=== PATIENT | female | born 1995 | race African-American/Black ===

== ENCOUNTER 2017-04-28 12:22 | Emergency (ER) | payer MEDICAID, OTHER ==
[2017-04-28 12:39] VITALS: BP 138/74
--- NOTE | 2017-04-28 12:53 | ER Document Report ---
HPI - HPI Patient complains to provider of: right eye draining , sinus pressure and [place] Onset: Yesterday Onset/Duration: Gradual Quality of pain: Pressure Severity: Moderate Pain Level: 4 Context: States right eye started draining yesterday, no colored drainage chest clear. States she did have a recent cold and is experiencing nasal pressure and headache. Associated Symptoms: Headache, Sinus pain/drainage. denies: Fever Exacerbated by: Denies Relieved by: Denies Similar symptoms previously: Yes Recently seen / treated by doctor: No - ROS ROS below otherwise negative: Yes Systems Reviewed and Negative: Yes All other systems reviewed and negative - CONSTITUTIONAL Constitutional: DENIES: Fever - EENT EENT: REPORTS: Nasal Drainage-Clear. DENIES: Sore Throat - NEURO Neurology: REPORTS: Headache - CARDIOVASCULAR Cardiovascular: DENIES: Chest pain - RESPIRATORY Respiratory: DENIES: Trouble Breathing - GASTROINTESTINAL Gastrointestinal: DENIES: Abdominal Pain - URINARY Urinary: DENIES: Dysuria - REPRODUCTIVE Reproductive: DENIES: : - MUSCULOSKELETAL Musculoskeletal: DENIES: Extremity pain - DERM Skin Color: Normal Skin Problems: None Past Medical History - General Information source: Patient - Social History Smoking Status: Current Every Day Smoker Cigarette use (# per day): Yes Frequency of alcohol use: Occasional Drug Abuse: None Lives with: Spouse/Significant other Family History: Arthritis, Hypertension, Malignancy, Thyroid Disfunction Patient has suicidal ideation: No Patient has homicidal ideation: No Neurological Medical History: Reports: Hx Migraine Musculoskeltal Medical History: Reports Hx Musculoskeletal Deformity, Reports Hx Musculoskeletal Trauma Past Surgical History: Reports: Hx Oral Surgery - [place] teeth - Immunizations Immunizations up to date: Yes Hx Diphtheria, Pertussis, Tetanus Vaccination: Yes Vertical Provider Document - CONSTITUTIONAL Agree With Documented VS: Yes Exam Limitations: No Limitations General Appearance: WD/WN, No Apparent Distress - INFECTION CONTROL TRAVEL OUTSIDE OF THE [place] IN LAST 30 DAYS: No - HEENT HEENT: Atraumatic, Pharyngeal Erythema - mild Notes: Clear drainage noted from right eye, sclera clear. Patient tender over right maxillary sinus. TMs with fluid bilaterally, more in right than left. No discoloration around the eye noted at this time. - NECK Neck: Normal Inspection, Supple - RESPIRATORY Respiratory: Breath Sounds Normal, No Respiratory Distress O2 Sat by Pulse Oximetry: 100 - CARDIOVASCULAR Cardiovascular: Regular Rate, Regular Rhythm - GI/ABDOMEN Gastrointestinal: Abdomen Soft - MUSCULOSKELETAL/EXTREMETIES Musculoskeletal/Extremeties: ALEC CONTEH - NEURO Level of Consciousness: Awake, Alert, Appropriate - DERM Integumentary: Warm, Dry, No Rash Course - Vital Signs Vital signs: Temp Pulse Resp BP Pulse Ox 98.2 F 59 L 20 138/74 H 100 04/28/17 12:37 04/28/17 12:37 04/28/17 12:37 04/28/17 12:37 04/28/17 12:37 Discharge - Discharge Clinical Impression: Acute maxillary sinusitis Qualifiers: Recurrence: not specified as recurrent Qualified Code(s): J01.00 - Acute maxillary sinusitis, unspecified Conjunctivitis Qualifiers: Conjunctivitis type: acute Acute conjunctivitis type: unspecified Laterality: right Qualified Code(s): H10.31 - Unspecified acute conjunctivitis, right eye Bilateral serous otitis media Qualifiers: Chronicity: acute Recurrence: not specified as recurrent Qualified Code(s): H65.03 - Acute serous otitis media, bilateral Condition: Good Disposition: HOME, SELF-CARE Additional Instructions: Take all meds as prescribed 1 drop in right eye 4 times a day for 7 days warm compresses Saline nasal rinses OTC decongestant for symptom relief Tylenol or Motrin as needed for headache Follow-up with your doctor for recheck if not better in 4-5 days. return as needed. Prescriptions: Amox Tr/Potassium Clavulanate [Augmentin 875-125 mg Tablet] 1 tab PO BID #20 tablet
[2017-04-28] MEDS ORDERED: POLYMYXIN B SULFATE/TMP OPH SOLN (10 ML/ER DISP) OD PRN (12:54)
[2017-04-28] MEDS ORDERED: OXYCODONE-ACETAMINOPHEN 5-325 MG TABLET PO ONE (12:54)
== END 2017-04-28 13:15 | disposition home or self-care (01) ==
LOC: ER 12:22
DX: J01.00 Acute maxillary sinusitis, unspecified (principal); H10.31 Unspecified acute conjunctivitis, right eye; H65.03 Acute serous otitis media, bilateral; H57.11 Ocular pain, right eye; R51 Headache; F17.210 Nicotine dependence, cigarettes, uncomplicated
CPT/HCPCS: 99283; J3490

== ENCOUNTER 2017-04-29 00:02 | Emergency (ER) | payer SELFPAY ==
[2017-04-29] MEDS ORDERED: DIPHENHYDRAMINE HCL 50 MG/ML VIAL IV ONE (03:56)
[2017-04-29] MEDS ORDERED: KETOROLAC TROMETHAMINE INJ/PF 30 MG/1 ML SDV IV ONE (03:56)
[2017-04-29] MEDS ORDERED: METOCLOPRAMIDE HCL INJ/PF 10 MG/2 ML SDV IV ONE (03:56)
[2017-04-29] MEDS ORDERED: NORMAL SALINE 1000 ML 1,000 ML IV ONE (03:57)
--- NOTE | 2017-04-29 04:01 | ER Document Report ---
HPI - HPI Patient complains to provider of: Throbbing right-sided face pain Onset: Yesterday Onset/Duration: Gradual Pain Level: 2 Context: 21-year-old female complaining of gradual onset right-sided headache and neck pain since yesterday. It started with tearing of the right eye and progressed to infraorbital headache and radiated into the right side of her neck. It progressively got worse throughout the day. She was already seen in the emergency department and treated for conjunctivitis and sinusitis. She did have an upper respiratory infection several weeks ago but no longer has any nasal drainage. No History of migraine but her chart indicated that she did. No fever or chills. Associated Symptoms: None Exacerbated by: Denies Relieved by: Denies Similar symptoms previously: No Recently seen / treated by doctor: Yes - ROS ROS below otherwise negative: Yes Systems Reviewed and Negative: Yes All other systems reviewed and negative - REPRODUCTIVE LMP: 04/16/17 Reproductive: DENIES: : - DERM Skin Color: Normal, [place] Past Medical History - General Information source: Patient Last Menstrual Period: 04-16-17 - Social History Smoking Status: Never Smoker Frequency of alcohol use: None Drug Abuse: None Lives with: Spouse/Significant other Family History: Arthritis, Hypertension, Malignancy, Thyroid Disfunction Patient has suicidal ideation: No Patient has homicidal ideation: No Neurological Medical History: Reports: Hx Migraine Renal/ Medical History: Denies: Hx Peritoneal Dialysis Musculoskeltal Medical History: Reports Hx Musculoskeletal Deformity, Reports Hx Musculoskeletal Trauma Past Surgical History: Reports: Hx Oral Surgery - [place] teeth - Immunizations Immunizations up to date: Yes Hx Diphtheria, Pertussis, Tetanus Vaccination: Yes Vertical Provider Document - CONSTITUTIONAL Agree With Documented VS: Yes Exam Limitations: No Limitations - INFECTION CONTROL TRAVEL OUTSIDE OF THE [place] IN LAST 30 DAYS: No - HEENT HEENT: Atraumatic, Normocephalic, PERRLA. negative: Conjuctival Injection, Pharyngeal Erythema, Tympanic Membrane Red - NECK Neck: Supple. negative: Lymphadenopathy-Left, Lymphadenopathy-Right Notes: tender right SCM muscle, no adenopathy - RESPIRATORY Respiratory: Breath Sounds Normal, No Respiratory Distress O2 Sat by Pulse Oximetry: 98 - CARDIOVASCULAR Cardiovascular: Regular Rate, Regular Rhythm - GI/ABDOMEN Gastrointestinal: Abdomen Soft, Abdomen Non-Tender - MUSCULOSKELETAL/EXTREMETIES Musculoskeletal/Extremeties: MAEW, FROM, Non-Tender - NEURO Level of Consciousness: Awake, Alert Motor/Sensory: No Motor Deficit, No Sensory Deficit - DERM Integumentary: Warm, Dry, No Rash Course - Vital Signs Vital signs: Temp Pulse Resp BP Pulse Ox 98.0 F 64 16 138/89 H 98 04/29/17 00:08 04/29/17 00:08 04/29/17 00:08 04/29/17 00:08 04/29/17 00:08 Discharge - Discharge Clinical Impression: migraine headache Condition: Good Disposition: HOME, SELF-CARE Instructions: Migraine Headache ([facility]), Toradol Injection ([facility]), Reglan ([facility]), Use of Diphenhydramine Additional Instructions: rest plenty of fluids see neurologist if recurs/ persists to er if worse Forms: Return to Work Referrals: CHRISTOS BELLE MD [ACTIVE STAFF] - Follow up as needed
[2017-04-29 05:27] VITALS: BP 124/85
== END 2017-04-29 05:25 | disposition home or self-care (01) ==
LOC: ER 00:02
DX: G43.909 Migraine, unspecified, not intractable, without status migrainosus (principal); M54.2 Cervicalgia
CPT/HCPCS: 99283; 96361; 96374; 96375; J1200; J1885; J2765; J7030

== ENCOUNTER 2019-04-05 21:12 | Emergency (ER) | payer SELFPAY ==
[2019-04-05 21:28] VITALS: BP 126/79
[2019-04-05] MEDS ORDERED: ACETAMINOPHEN 325 MG TABLET PO ONE ×2 (21:43→21:52)
[2019-04-06] MEDS ORDERED: PENICILLIN V POTASSIUM 500 MG TABLET PO ONE (00:53)
[2019-04-06] MEDS ORDERED: DEXAMETHASONE SOD PHOS INJ 10 MG/1 ML VIAL IM ONE (00:54)
--- NOTE | 2019-04-06 00:56 | ER Document Report ---
ED General - General Chief Complaint: Flu Symptoms Stated Complaint: FEVER Time Seen by Provider: 04/06/19 00:37 Notes: Patient is a pleasant 23 year old female who presents with complaint of a sore throat, mild headache, body aches, and fever. She says her daughter had similar symptoms but her daughter started to improve. She said her daughter with her audio visual production specialist and they did do a throat swabto go back tomorrow for the throat culture results. Patient herself denies any vomiting. No cough. No other complaints at this time. TRAVEL OUTSIDE OF THE [place] IN LAST 30 DAYS: No - Related Data Allergies/Adverse Reactions: naproxen sodium [From Aleve] Allergy (Verified 07/08/16 14:46) fruit Allergy (Uncoded 07/08/16 14:46) Past Medical History - Social History Smoking Status: Current Every Day Smoker Frequency of alcohol use: Occasional Drug Abuse: None Family History: Arthritis, Hypertension, Malignancy, Thyroid Disfunction Patient has suicidal ideation: No Patient has homicidal ideation: No Neurological Medical History: Reports: Hx Migraine Renal/ Medical History: Denies: Hx Peritoneal Dialysis Musculoskeletal Medical History: Reports Hx Musculoskeletal Deformity, Reports Hx Musculoskeletal Trauma Past Surgical History: Reports: Hx Oral Surgery - [place] teeth - Immunizations Immunizations up to date: Yes Hx Diphtheria, Pertussis, Tetanus Vaccination: Yes Review of Systems - Review of Systems Notes: My Normal Review Basic REVIEW OF SYSTEMS: CONSTITUTIONAL : Fever EENT: Sore throat CARDIOVASCULAR: Denies chest pain. RESPIRATORY: Denies cough, cold, or chest congestion. Denies shortness of breath, difficulty breathing, or wheezing. GASTROINTESTINAL: Denies abdominal pain. Denies nausea, vomiting, or diarrhea. MUSCULOSKELETAL: Denies neck or back pain or joint pain or swelling. SKIN: Denies rash or skin lesions. NEUROLOGICAL: Denies altered mental status or loss of consciousness. Mild headache. Denies weakness or paralysis or loss of use of either side. Denies problems with gait or speech. Denies sensory or motor loss. ALL OTHER SYSTEMS REVIEWED AND NEGATIVE. Physical Exam - Vital signs Vitals: Temp Pulse Resp BP Pulse Ox 102.8 F H 96 20 126/79 H 99 04/05/19 21:26 04/05/19 21:26 04/05/19 21:26 04/05/19 21:26 04/05/19 21:26 - Notes Notes: General Appearance: Well nourished, alert, cooperative, no acute distress, mild obvious discomfort. No stridor. No signs of difficulty breathing. Lung secretions without difficulty. Vitals: reviewed, See vital signs table. Head: no swelling or tenderness to the head Eyes: PERRL, EOMI, Conjuctiva clear Mouth: No decreasd moisture Throat: Bilateral tonsils are erythematous red and bulging with exudates. Uvula is midline. No peritonsillar inflammation or swelling. Neck: Supple, no neck tenderness, No swelling Lungs: No wheezing, No rales, No rhonci, No accessory muscle use, good air exchange bilaterally. Heart: Normal rate, Regular rythm, No murmur, no rub Extremities: good pulses in all extremities, no swelling or tenderness in the extremities, no edema. Skin: warm, dry, appropriate color, no rash Neuro: speech clear, oriented x 3, normal affect, responds appropriately to questions. Course - Re-evaluation Re-evalutation: 04/06/19 03:12 Patient has strep pharyngitis per center criteria. She did not want a shot of penicillin. She prefers to take pills. She was agreeable to start Decadron being that her tonsils are very inflamed. I did give her a dose of Decadron. We will place her on penicillin. I talked her about signs and symptoms of peritonsillar abscess and informed her to return to ER immediately if she has any signs or symptoms where she feels she is worsening in any way. Patient agrees with plan will be discharged home. Dictation of this chart was performed using voice recognition software; therefore, there may be some unintended grammatical errors. - Vital Signs Vital signs: Temp Pulse Resp BP Pulse Ox 98.4 F 96 20 126/79 H 99 04/06/19 00:19 04/05/19 21:26 04/05/19 21:26 04/05/19 21:26 04/05/19 21:26 Discharge - Discharge Clinical Impression: Strep throat Condition: Good Disposition: HOME, SELF-CARE Additional Instructions: Strep Throat Your sore throat is due to the streptococcus germ (strep throat). Strep throat usually makes you feel quite ill with fever and aches, headache, swollen sore throat, and tender bumps under the angles of the jaw. Strep throat requires antibiotic treatment. Although the sore throat may go away by itself, complications such as rheumatic fever, kidney disease, or throat abscess can occur. We usually prescribe antibiotics by mouth. Be sure to take the medicine until it's gone. If you stop early, the strep may come back. If you are vomiting, are severely ill, or can't remember to take pills, we can give you an antibiotic shot. Take acetaminophen or ibuprofen for pain and fever. Sip frequent clear liquids, or use popsicles or ice chips. Anesthetic sprays or lozenges may help. Make sure the air in the room is not too dry. Avoid using decongestants or antihistamines. Call the doctor if there is no improvement in three days, or if you have difficulty breathing, increasing throat pain, high fever, rash, or frequent vomiting. Sometimes people with strep throat will go on to develop something called a peritonsillar abscess. This will be swelling above your tonsil causing the uvula (hangy ball in the back of your throat) to shift to one side of your throat. If you develop these symptoms you must return to the ER immediately as this requires a different kind of treatment. Also please return to the ER immediately for difficulty breathing, difficulty swallowing, or if you have any further concerns that you are worsening. Prescriptions: Penicillin V Potassium [Penicillin Vk 500 mg Tablet] 500 mg PO BID #20 tablet Forms: Return to Work
== END 2019-04-06 01:06 | disposition home or self-care (01) ==
LOC: ER 21:12
DX: J02.0 Streptococcal pharyngitis (principal); R50.9 Fever, unspecified; F17.200 Nicotine dependence, unspecified, uncomplicated; Z88.3 Allergy status to other anti-infective agents
CPT/HCPCS: 99282; 96372; J1100

== ENCOUNTER 2019-04-07 22:03 | Emergency (ER) | payer SELFPAY ==
[2019-04-08] MEDS ORDERED: FAMOTIDINE 20 MG TABLET PO ONE (04:56)
[2019-04-08] MEDS ORDERED: PREDNISONE 20 MG TABLET PO ONE (04:56)
[2019-04-08] MEDS ORDERED: DIPHENHYDRAMINE HCL 50 MG CAPSULE PO ONE (04:56)
[2019-04-08] MEDS ORDERED: METOCLOPRAMIDE HCL ORAL SOLN 10 MG/10 ML UDCUP PO ONE (05:01)
[2019-04-08] MEDS ORDERED: MAG HYDROX/AL HYDROX/SIMETH SUSP 30 ML UDCUP PO ONE (05:01)
[2019-04-08] MEDS ORDERED: LIDOCAINE 2% VISCOUS SOLN 20 ML UDCUP PO ONE (05:01)
--- NOTE | 2019-04-08 05:09 | ER Document Report ---
ED General - General Chief Complaint: Allergic Reaction Stated Complaint: POSSIBLE ALLERGIC REACTION Time Seen by Provider: 04/08/19 04:56 Mode of Arrival: Ambulatory Information source: Patient, [facility] Records Notes: 23-year-old female presents with concern for allergic reaction to penicillin. Strep throat yesterday and took her first dose of penicillin just prior to arrival and experienced worsening facial swelling, worsening pain. Patient reports that she has had intermittent fever, pain with swallowing, right ear pain. She denies cough. TRAVEL OUTSIDE OF THE [place] IN LAST 30 DAYS: No - HPI Onset: Yesterday Onset/Duration: Gradual, Persistent Quality of pain: [place]y, Burning Severity: Mild Associated symptoms: Earache, Fever, Sore throat. denies: Body/muscle aches, Diarrhea, Headache, Nausea, Vomiting, Weakness Exacerbated by: Denies Relieved by: Denies Similar symptoms previously: No Recently seen / treated by doctor: No - Related Data Allergies/Adverse Reactions: naproxen sodium [From Aleve] Allergy (Verified 07/08/16 14:46) fruit Allergy (Uncoded 07/08/16 14:46) Past Medical History - General Information source: Patient, [facility] Records - Social History Smoking Status: Never Smoker Frequency of alcohol use: None Drug Abuse: None Lives with: Spouse/Significant other Family History: Arthritis, Hypertension, Malignancy, Thyroid Disfunction Patient has suicidal ideation: No Patient has homicidal ideation: No Neurological Medical History: Reports: Hx Migraine Renal/ Medical History: Denies: Hx Peritoneal Dialysis Musculoskeletal Medical History: Reports Hx Musculoskeletal Deformity, Reports Hx Musculoskeletal Trauma Past Surgical History: Reports: Hx Oral Surgery - [place] teeth - Immunizations Immunizations up to date: Yes Hx Diphtheria, Pertussis, Tetanus Vaccination: Yes Review of Systems - Review of Systems Constitutional: Fever, Recent illness EENT: Throat pain, Throat swelling Cardiovascular: denies: Chest pain, Palpitations Respiratory: denies: Short of breath, Wheezing Gastrointestinal: denies: Diarrhea, Nausea, Vomiting Genitourinary: denies: Flank pain Female Genitourinary: denies: Musculoskeletal: No symptoms reported Skin: denies: Rash Hematologic/Lymphatic: No symptoms reported Neurological/Psychological: denies: Headaches -: Yes All other systems reviewed and negative Physical Exam - Vital signs Vitals: Temp Pulse Resp BP Pulse Ox 99.5 F 79 14 124/66 100 04/07/19 22:29 05/16/19 22:29 04/07/19 22:29 04/07/19 22:29 04/07/19 22:29 - Notes Notes: PHYSICAL EXAMINATION: GENERAL: Well-appearing, well-nourished and in no acute distress. HEAD: Atraumatic, normocephalic. EYES: Pupils equal round and reactive to light, extraocular movements intact, conjunctiva are normal. ENT: Nares patent, 2+ tonsillar swelling with associated exudate. Moist mucous membranes. TMs clear bilaterally NECK: Normal range of motion, supple without lymphadenopathy LUNGS: Breath sounds clear to auscultation bilaterally and equal. No wheezes rales or rhonchi. HEART: Regular rate and rhythm without murmurs ABDOMEN: Soft, nontender, nondistended abdomen. No guarding, no rebound. No masses appreciated. Female : deferred Musculoskeletal: Normal range of motion, no pitting or edema. No cyanosis. NEUROLOGICAL: Cranial nerves grossly intact. Normal speech, normal gait. Normal sensory, motor exams PSYCH: Normal mood, normal affect. SKIN: Warm, Dry, normal turgor, no rashes or lesions noted. Course - Re-evaluation Re-evalutation: Laboratory 04/08/19 05:00 Group A Strep Rapid NEGATIVE Temp Pulse Resp BP Pulse Ox 99.2 F 85 20 118/65 98 04/08/19 06:00 04/08/19 06:00 04/08/19 06:00 04/08/19 06:00 04/08/19 06:00 04/08/19 23:35 23-year-old female presents with concern for allergic reaction to her penicillin. Patient was diagnosed with strep throat took her first dose of penicillin just prior to arrival. She states shortly afterwards she feltLike her throat was closing. She did not develop a rash, shortness of breath, nausea, vomiting. Signs reviewed and patient was afebrile, normotensive. She does not appear toxic or dehydrated. Previous medical records and nursing notes reviewed. Strep swab was obtained and negative. Patient was treated with Benadryl, Pepcid and prednisone. On reevaluation patient is sleeping. Advised her to stop her penicillin as she does not have strep throat. Patient was discharged home with prednisone, Pepcid and advised to take Benadryl as needed. Patient was evaluated and treated as appropriate for the patient's presenting symptoms and complaint, with consideration of any critical or life threatening conditions that may be associated with their obtained history and exam as noted above. All results were discussed with patient . Patient provided the opportunity to ask questions, and express concerns. Patient was educated on treatments based on their presumed diagnosis as noted above. At this time we will discharge the patient with return precautions and follow-up recommendations. Verbal discharge instructions given a the bedside. Medication warnings reviewed. Patient is in agreement with this plan and has verbalized understanding of return precautions. After careful consideration I feel that that patient can be safely discharged from the emergency department, they were advised to followup with a primary care physician in 2-3 days. Dictation on this chart was performed using voice recognition software and may result in unintended grammatical, spelling, syntax or errors. - Vital Signs Vital signs: Temp Pulse Resp BP Pulse Ox 99.2 F 85 20 118/65 98 04/08/19 06:00 04/08/19 06:00 04/08/19 06:00 04/08/19 06:00 04/08/19 06:00 Discharge - Discharge Clinical Impression: Viral pharyngitis URI (upper respiratory infection) Qualifiers: URI type: unspecified URI Qualified Code(s): J06.9 - Acute upper respiratory infection, unspecified Condition: Good Disposition: HOME, SELF-CARE Instructions: Acute Allergic Reaction to Drugs ([facility]), Sore Throat ([facility]), Upper Respiratory Illness ([facility]), Viral Syndrome ([facility]) Additional Instructions: You do not need to take your penicillin. You do not have strep throat. Your strep test is negative. Your symptoms are likely due to an viral infection and will resolve in the next 1-2 weeks. You have also been given a dose of steroids to help with your throat discomfort. Please continue to take ibuprofen 600 mg every 6 hours or Tylenol 1000 mg every 6 hours as needed for throat discomfort. You can also gargle with salt water. Continue to drink plenty of fluids. Follow-up with your primary care doctor in the next several days. Return if you become unable to swallow, have difficulty breathing, pass out, have persistent vomiting that prevents you from being able to tolerate fluids, or have any other symptoms that are concerning to you. Prescriptions: Prednisone [Deltasone 20 mg Tablet] 3 tab PO DAILY 5 Days #15 tablet Forms: Parent Work Note, Return to Work
[2019-04-08 06:24] VITALS: BP 118/65
== END 2019-04-08 06:24 | disposition home or self-care (01) ==
LOC: ER 22:03
DX: J02.8 Acute pharyngitis due to other specified organisms (principal); B97.89 Other viral agents as the cause of diseases classified elsewhere; J35.1 Hypertrophy of tonsils; H92.01 Otalgia, right ear; R50.9 Fever, unspecified; Z88.8 Allergy status to other drugs, medicaments and biological substances; Z91.018 Allergy to other foods
CPT/HCPCS: 99283; 87070; 87880; J3490; J7512